=== PATIENT | female | born 1995 | race Caucasian/White ===

== ENCOUNTER 2016-04-01 12:10 | Emergency (ER) | payer OTHER ==
[2016-04-01 12:14] VITALS: BP 126/70; PULSE 72; TEMP 97.9; BMI 32.3
--- NOTE | 2016-04-01 13:37 | PDOC ---
History of Present Illness - General Chief Complaint: Rectal Bleed Stated Complaint: BLOOD IN STOOL Time Seen by Provider: 04/01/16 13:22 - History of Present Illness Initial Comments: 04/01/16 13:41 20-year-old female with a negative past medical history She is on no medications, NKDA, last menstrual period 3 weeks ago normal and on time Patient is complaining of bright red blood in her stool since Tuesday Associated with some abdominal cramping She states that she is passing formed brown stool, with some of bright red blood in the bowl around the stool She states that each time she has a bowel movement there is blood in there She denies any abdominal pain but admits to some cramping She admits to nausea, and she vomited yesterday but not today There was no blood or coffee grounds in the vomitus She states she is eating okay despite the nausea and her appetite is good She states that she did not have diarrhea at any point, and it's been formed stool with bright red blood She did go to an urgent care center last night, and was told that she did not have a hemorrhoid, or fissure on exam She states that she had 2 episodes again today with more blood, prompting her to come to the emergency department Of note, the patient is a veterinary tech, and works with snakes and reptiles, and she also works with eagles and birds of prey Patient has no history of inflammatory bowel disease, and there is no family history of Crohn's or ulcerative colitis in her family She denies any fever or chills Past History - Past Medical History Allergies/Adverse Reactions: Allergies Allergy/AdvReac Type Severity Reaction Status Date / Time No Known Allergies Allergy Verified 04/01/16 12:11 Home Medications: Ambulatory Orders Ciprofloxacin [Cipro (Restricted To Id)] 500 mg PO Q12H #10 tablet 04/01/16 Other medical history: DENIES - Psycho/Social/Smoking Cessation Hx Anxiety: No Suicidal Ideation: No Smoking History: Never smoked Hx Alcohol Use: Yes Drug/Substance Use Hx: No Substance Use Type: Alcohol Review of Systems - Review of Systems Able to Perform ROS?: Yes Comments:: 04/01/16 13:44 12 point review of systems is as per history of present illness and otherwise negative *Physical Exam - Vital Signs Last Vital Signs Temp Pulse Resp BP Pulse Ox 97.9 F 72 16 126/70 100 04/01/16 12:11 04/01/16 12:11 04/01/16 12:11 04/01/16 12:11 04/01/16 12:11 - Physical Exam Comments: 04/01/16 13:44 Physical exam Last Vital Signs Temp Pulse Resp BP Pulse Ox 97.9 F 72 16 126/70 100 04/01/16 12:11 04/01/16 12:11 04/01/16 12:11 04/01/16 12:11 04/01/16 12:11 GENERAL: The patient is awake, alert, and fully oriented, and in no apparent distress. HEAD: Normal with no signs of trauma. EYES: Sclera anicteric, conjunctiva normal ENT: Moist mucous membranes. NECK: Normal range of motion, supple LUNGS: Breath sounds equal, clear to auscultation bilaterally. No wheezes, and no crackles. HEART: Regular rate and rhythm, normal S1 and S2 without murmur, rub or gallop. ABDOMEN: Soft, nontender, normoactive bowel sounds. No guarding, no rebound. No masses appreciated. RECTAL: There is no external or internal hemorrhoids There is no fissure There is a small amount of brown stool in the vault, which is trace heme- positive EXTREMITIES: Normal range of motion, no edema. No clubbing or cyanosis. No cords, erythema, or tenderness. NEUROLOGICAL: Cranial nerves II through XII grossly intact. Normal speech, normal gait. PSYCH: Normal mood, normal affect. SKIN: Warm, Dry, normal turgor, no rashes or lesions noted. ED Treatment Course - LABORATORY CBC & Chemistry Diagram: 04/01/16 13:48 04/01/16 13:48 Medical Decision Making - Medical Decision Making 04/01/16 13:45 Patient went to the bathroom, and passed some bright red blood from her rectum 04/01/16 15:00 Laboratory Results - last 24 hr 04/01/16 04/01/16 04/01/16 13:40 13:48 13:48 WBC 7.2 RBC 4.66 Hgb 11.9 Hct 36.7 MCV 78.6 L MCHC 32.6 RDW 14.4 Plt Count 285 MPV 9.5 Sodium 139 Potassium 4.2 Chloride 106 Carbon Dioxide 26 Anion Gap 7 L BUN 7 Creatinine 0.6 Creat Clearance w eGFR > 60 Random Glucose 94 Calcium 9.5 Total Bilirubin 0.2 AST 19 ALT 19 Alkaline Phosphatase 47 Total Protein 7.3 Albumin 4.2 Stool Occult Blood Negative Vital Signs - 24 hr 04/01/16 12:11 Temperature 97.9 F Pulse Rate 72 Respiratory 16 Rate Blood Pressure 126/70 O2 Sat by Pulse 100 Oximetry (%) Patient walking around without problems, hemodynamically stable She did not pass any more stool or blood in the emergency department Case and all results discussed with Dr. [id number] see the patient in the office on Tuesday and arrange for sigmoidoscopy and further workup He would like stool for culture and O&P, and after she provides a specimen he would like the patient on Cipro twice a day Patient will return if she worsens in any way *DC/Admit/Observation/Transfer Diagnosis at time of Disposition: BRBPR (bright red blood per rectum) - Discharge Dispostion Disposition: HOME Condition at time of disposition: Stable - Prescriptions Prescriptions: Ciprofloxacin [Cipro (Restricted To Id)] 500 mg PO Q12H #10 tablet - Patient Instructions Printed Discharge Instructions: DI for Rectal Bleeding Additional Instructions: Please get stool specimens and bring them back by this evening as directed After you provide a stool specimens, then you may start the Cipro, one pill twice a day, recommended by GI Please follow-up with Dr. Cronin in the office on Tuesday-please call tomorrow for an appointment- please call [phone] Return immediately if you worsen in any way, or the bleeding gets any worse eat lightly Followup with your primary care physician in 24-48 hours Return immediately if you worsen in any way Take your medications as directed - Post Discharge Activity Work/School Note: Back to Work
[2016-04-01 14:08] LABS: MCH 25.6 pg (25.7-33.7); MCHC 32.6 g/dl (32.0-36.0); MEAN CELL VOLUME 78.6 fl (80-96); MEAN PLT VOLUME 9.5 fl (7.5-11.1); PLATELET COUNT 285 K/MM3 (134-434); RDW 14.4 % (11.6-15.6); WHITE BLOOD COUNT 7.2 K/mm3 (4.0-10.0)
[2016-04-01 14:27] LABS: ALBUMIN 4.2 g/dl (3.5-5.0); ALK PHOS 47 U/L (32-92); ANION GAP 7 (8-16); CALCIUM 9.5 mg/dl (8.4-10.2); CO2 26 mmol/L (22-28); CREATININE 0.6 mg/dl (0.6-1.3); GLUCOSE,RANDOM 94 mg/dl (74-106); SGOT/AST 19 U/L (10-42); SGPT/ALT 19 U/L (10-40); TOT PROT 7.3 g/dl (6.4-8.3)
[2016-04-01 14:37] LABS: BILIRUBIN,TOTAL 0.2 mg/dl (0.2-1.0)
== END 2016-04-01 15:26 | disposition home or self-care (01) ==
LOC: FER 12:10
DX: K92.1 Melena (principal)
CPT/HCPCS: 36415; 80053; 82272; 85027; 87045; 87046; 87177; 87205; 87207; 87209; 87328; 87329; 99282-25